=== PATIENT | male | born 1955 | race Caucasian/White ===

== ENCOUNTER 2018-09-20 10:07 | Inpatient (IN) ==
[2018-09-20] MEDS ORDERED: HEPARIN DRIP 25,000 UNITS/500 ML PREMIX IV ONE (15:48)
[2018-09-20] MEDS: HEPARIN DRIP 25,000 UNITS/500 ML PREMIX IV SCH (19:12)
[2018-09-20] MEDS ORDERED: NITROGLYCERIN SL 0.4 MG TABLET SL PRN (21:59)
[2018-09-20] MEDS ORDERED: MORPHINE 4 MG/1 ML VIAL IV PRN (21:59)
[2018-09-21] MEDS: NITROGLYCERIN 2% OINT 1 INCH/GM PACK TOP SCH ×4 (00:15→19:28)
[2018-09-21 00:59] LABS: Basophils # 0.1 10*3/uL (0.0-0.2); Basophils % 0.5 % (0.0-0.8); Eosinophils # 0.2 10*3/uL (0.0-0.87); Eosinophils % 2.2 % (0.00-10.9); Hematocrit 44.1 VOL% (42.0-52.0); Hemoglobin 14.3 GM/DL (14.0-18.0); Immature Granulocytes % 0.4 %; Immature Granulocytes Absolute 0.04 #; Lymphocytes # 3.2 10*3/uL (1.4-4.0); Lymphocytes % 34.5 % (21.2-54.2); Mean Corpuscular HGB Conc 32.4 GM/DL (32-36); Mean Corpuscular Volume 90.4 FL (87-102); Mean Platelet Volume 8.6 FL (9.6-12.0); Neutrophils % 51.4 % (38.7-73.9); Platelet Count 239 T/CUMM (130-400); Red Blood Count 4.88 MC/CUMM (3.8-5.5); Red Cell Distribution Width 13.4 % (9.3-17.3); White Blood Count 9.4 T/CUMM (4-12)
[2018-09-21 01:30] LABS: Blood Urea Nitrogen 13 MG/DL (7-18); Calcium 8.5 MG/DL (8.5-10.1); Glucose 110 MG/DL (74-106); Osmolality,Calculated 283.1 MOS/KG (273-304)
[2018-09-21] MEDS ORDERED: HEPARIN 5,000 UNIT/1 ML VIAL IV PRN (02:08)
[2018-09-21] MEDS ORDERED: predniSONE 5 MG TABLET PO SCH (09:00)
[2018-09-21] MEDS: predniSONE 5 MG TABLET PO SCH (09:16)
[2018-09-21] MEDS: amLODIPine 10 MG TABLET PO SCH (09:16)
[2018-09-21] MEDS: BENAZEPRIL 10 MG TABLET PO SCH (09:16)
[2018-09-21] MEDS: HEPARIN DRIP 25,000 UNITS/500 ML PREMIX IV SCH ×2 (09:16→19:28)
[2018-09-21 12:35] LABS: Troponin I 0.949 NG/ML (0.00-0.045)
[2018-09-21] MEDS ORDERED: SIMVASTATIN 10 MG TABLET PO SCH (17:00)
[2018-09-21] MEDS: SIMVASTATIN 10 MG TABLET PO SCH (21:44)
[2018-09-22] MEDS: HEPARIN DRIP 25,000 UNITS/500 ML PREMIX IV SCH ×2 (00:41→16:19)
[2018-09-22] MEDS: NITROGLYCERIN 2% OINT 1 INCH/GM PACK TOP SCH ×4 (01:30→19:08)
[2018-09-22] MEDS ORDERED: ACETAMINOPHEN 325 MG TABLET PO PRN (01:50)
[2018-09-22] MEDS: BENAZEPRIL 10 MG TABLET PO SCH (12:33)
[2018-09-22] MEDS: amLODIPine 10 MG TABLET PO SCH (12:34)
[2018-09-22] MEDS: CHLORHEXIDINE 4% SOLN 118 ML BOTTLE TOP SCH ×2 (20:02→22:48)
[2018-09-22] MEDS: SIMVASTATIN 10 MG TABLET PO SCH (21:05)
[2018-09-22] MEDS: CHLORHEXIDINE 0.12% ORAL RINSE 60 ML BOTTLE SWISH/SPIT SCH (22:48)
[2018-09-23] MEDS: NITROGLYCERIN 2% OINT 1 INCH/GM PACK TOP SCH ×3 (00:40→14:44)
[2018-09-23] MEDS ORDERED: TISSUE ADHESIVE 1 EACH APPLICATOR TOP ONE (04:26)
[2018-09-23] MEDS ORDERED: VANCOMYCIN 1,000 MG VIAL ONE ×2 (04:26→14:51)
[2018-09-23] MEDS ORDERED: PAPAVERINE 60 MG/2 ML VIAL ONE (04:26)
[2018-09-23] MEDS: CHLORHEXIDINE 4% SOLN 118 ML BOTTLE TOP SCH ×2 (05:34→09:05)
[2018-09-23] MEDS ORDERED: FAMOTIDINE 20 MG TABLET PO ONE ×2 (06:00→10:00)
[2018-09-23] MEDS ORDERED: DIAZEPAM 5 MG TABLET PO ONE ×2 (06:00→10:00)
[2018-09-23] MEDS ORDERED: HEPARIN/NACL 0.9% 2 UNITS/ML 500 ML IV ONE (06:13)
[2018-09-23] MEDS ORDERED: AMINOCAPROIC ACID 5,000 MG/20 ML VIAL ONE ×2 (06:27→17:29)
[2018-09-23] MEDS ORDERED: CEFUROXIME INJ 1,500 MG in SYRINGE 1 EACH IV ONE (08:00)
[2018-09-23] MEDS: predniSONE 5 MG TABLET PO SCH (09:03)
[2018-09-23] MEDS: amLODIPine 10 MG TABLET PO SCH (09:03)
[2018-09-23] MEDS: BENAZEPRIL 10 MG TABLET PO SCH (09:04)
[2018-09-23] MEDS: CHLORHEXIDINE 0.12% ORAL RINSE 60 ML BOTTLE SWISH/SPIT SCH ×2 (09:08→20:05)
[2018-09-23] MEDS: SODIUM CHLORIDE 0.9% 1,000 ML IV SCH ×2 (09:11→10:39)
[2018-09-23] MEDS ORDERED: LIDOCAINE 2% TOP JELLY 20 ML VIAL INTRAURETH ONE ×2 (12:33→12:35)
[2018-09-23 13:09] LABS: ABG Base Excess 0.9 MMOL/L (-2.5-2.5); ABG HCO3 25.3 MMOL/L (20-26); ABG Oxygen Saturation 99.4 % (95-100); ABG PCO2 40.7 MM HG (35-48); ABG PH 7.408 (7.35-7.45); ABG TCO2 22.2 MMOL/L (23-27); Glucose Heart Surgery 127 MG/DL (74-106); Hematocrit Heart Surgery 42.1 PERCENT (42-52); Hemoglobin Heart Surgery 13.7 G/DL (14.0-18.0); Ionized Calcium Arterial 1.18 MMOL/L (1.21-1.46); PCO2 Patient Temp Arterial 40.7 MMHG; PH Patient Temp Arterial 7.408; Patient Temperature 37 CELCIUS; Potassium Heart/CVR 3.8 MMOL/L (3.5-5.1); Sodium Heart/CVR 141 MMOL/L (135-145)
[2018-09-23] MEDS ORDERED: EPINEPHrine 1 MG/10 ML SYRINGE ONE (14:07)
[2018-09-23] MEDS ORDERED: ATROPINE 1 MG/10 ML SYRINGE ONE (14:07)
[2018-09-23] MEDS ORDERED: SODIUM BICARBONATE 50 MEQ/50 ML VIAL IV ONE (14:07)
[2018-09-23] MEDS ORDERED: ALBUMIN 5% 12.5 GM/250 ML VIAL IV ONE (14:07)
[2018-09-23] MEDS ORDERED: PHENYLEPHRINE DRIP 0 MG/0 ML PREMIX IV ONE (14:07)
[2018-09-23] MEDS ORDERED: LIDOCAINE 100 MG/5 ML SYRINGE ONE (14:07)
[2018-09-23] MEDS ORDERED: POTASSIUM CHLORIDE RIDER 100 ML IV ONE (14:08)
[2018-09-23] MEDS ORDERED: MIDAZOLAM 10 MG/2 ML VIAL ONE ×2 (14:11→17:29)
[2018-09-23 14:42] LABS: Hematocrit Heart Surgery 27.9 PERCENT (42-52); PCO2 Patient Temp Venous 32.3 MM HG; PH Patient Temp Venous 7.477; PO2 Patient Temp Venous 34.1 MM HG; Potassium Heart/CVR 4.8 MMOL/L (3.5-5.1); VBG Base Excess 0.9 MEQ/L (0-4); VBG Oxygen Saturation 83.5 %; VBG PCO2 39.2 MMHG (41-51); VBG PH 7.418
[2018-09-23 15:08] LABS: Hematocrit Heart Surgery 30.2 PERCENT (42-52); Hemoglobin Heart Surgery 9.8 G/DL (14.0-18.0); PCO2 Patient Temp Venous 30.1 MM HG; PH Patient Temp Venous 7.486; Potassium Heart/CVR 4.9 MMOL/L (3.5-5.1); VBG HCO3 24.3 MEQ/L (24-28); VBG Oxygen Saturation 85.5 %; VBG PCO2 38.3 MMHG (41-51); VBG PH 7.413
[2018-09-23 15:40] LABS: Hematocrit Heart Surgery 33.2 PERCENT (42-52); Hemoglobin Heart Surgery 10.8 G/DL (14.0-18.0); PCO2 Patient Temp Venous 36.1 MM HG; PH Patient Temp Venous 7.432; PO2 Patient Temp Venous 41.3 MM HG; Potassium Heart/CVR 5.8 MMOL/L (3.5-5.1); VBG Base Excess 0.1 MEQ/L (0-4); VBG HCO3 24.3 MEQ/L (24-28); VBG Oxygen Saturation 82.2 %; VBG PCO2 37.9 MMHG (41-51); VBG PH 7.418; VBG PO2 44.2 MMHG (17-40)
[2018-09-23 16:14] LABS: ABG Base Excess -1.7 MMOL/L (-2.5-2.5); ABG Oxygen Saturation 97.9 % (95-100); ABG PCO2 37.3 MM HG (35-48); ABG PH 7.394 (7.35-7.45); ABG TCO2 20.3 MMOL/L (23-27); Glucose Heart Surgery 360 MG/DL (74-106); Hematocrit Heart Surgery 35.9 PERCENT (42-52); Hemoglobin Heart Surgery 11.6 G/DL (14.0-18.0); Ionized Calcium Arterial 1.25 MMOL/L (1.21-1.46); PCO2 Patient Temp Arterial 37.3 MMHG; PH Patient Temp Arterial 7.394; Patient Temperature 37 CELCIUS; Potassium Heart/CVR 4.3 MMOL/L (3.5-5.1); Sodium Heart/CVR 132 MMOL/L (135-145)
[2018-09-23] MEDS ORDERED: MANNITOL 100 GM/500 ML BAG IV ONE (16:15)
[2018-09-23] MEDS ORDERED: SODIUM BICARBONATE 10 MEQ/10 ML SYRINGE IV ONE (16:15)
[2018-09-23] MEDS ORDERED: DEXTROSE 5% KCL 20 MEQ 40 MEQ/2,000 ML BAG IV ONE (16:16)
[2018-09-23] MEDS ORDERED: FUROSEMIDE 20 MG/2 ML VIAL ONE (16:16)
[2018-09-23] MEDS ORDERED: HEPARIN 10,000 UNIT/10 ML VIAL ONE (16:16)
[2018-09-23] MEDS ORDERED: ALBUMIN 25% 25 GM/100 ML VIAL IV ONE (16:16)
[2018-09-23] MEDS ORDERED: methylPREDNISolone SOD SUC 1,000 MG/8 ML VIAL ONE (16:16)
[2018-09-23] MEDS ORDERED: PROTAMINE SULFATE 250 MG/25 ML VIAL IV ONE (16:16)
[2018-09-23] MEDS ORDERED: PROTAMINE SULFATE 50 MG/5 ML VIAL IV ONE (16:17)
[2018-09-23] MEDS ORDERED: THROMBIN TOPICAL (RECOMBINANT) 5,000 UNIT VIAL TOP ONE (16:21)
[2018-09-23] MEDS: SODIUM CHLORIDE 0.45% 1,000 ML IV SCH (17:15)
[2018-09-23] MEDS ORDERED: MIDAZOLAM 2 MG/2 ML VIAL ONE (17:28)
[2018-09-23] MEDS ORDERED: SEVOFLURANE 1 UNIT/15 MINUTE INH ONE (17:28)
[2018-09-23] MEDS ORDERED: ETOMIDATE 40 MG/20 ML VIAL IV ONE (17:29)
[2018-09-23] MEDS ORDERED: VECURONIUM 10 MG VIAL IV ONE (17:29)
[2018-09-23] MEDS ORDERED: SODIUM CHLORIDE 0.9% 1,000 ML IV ONE (17:30)
[2018-09-23] MEDS ORDERED: LACTATED RINGERS 1,000 ML IV ONE (17:30)
[2018-09-23] MEDS ORDERED: CALCIUM CHLORIDE 1,000 MG/10 ML SYRINGE IV PRN (17:33)
[2018-09-23] MEDS ORDERED: DEXTROSE 50% 25 GM/50 ML SYRINGE IV PRN ×2 (17:33)
[2018-09-23] MEDS ORDERED: SODIUM CHLORIDE 0.45% 1,000 ML IV SCH (17:33)
[2018-09-23] MEDS ORDERED: ACETAMINOPHEN 650 MG SUPP RECTAL PRN (17:33)
[2018-09-23] MEDS ORDERED: MIDAZOLAM 2 MG/2 ML VIAL IV PRN (17:33)
[2018-09-23] MEDS ORDERED: MAGNESIUM SULF RIDER 2 GM in PREMIX 1 EACH IV PRN (17:33)
[2018-09-23] MEDS ORDERED: MAGNESIUM SULF RIDER 4 GM in PREMIX 1 EACH IV PRN (17:33)
[2018-09-23] MEDS ORDERED: ONDANSETRON 4 MG/2 ML VIAL IV PRN (17:33)
[2018-09-23] MEDS ORDERED: MORPHINE 4 MG/1 ML VIAL IV PRN (17:33)
[2018-09-23] MEDS ORDERED: SODIUM CHLORIDE 0.9% 250 ML IV PRN (17:33)
[2018-09-23] MEDS ORDERED: CHLORHEXIDINE 4% SOLN 118 ML BOTTLE TOP PRN (17:33)
[2018-09-23] MEDS ORDERED: INSULIN REGULAR 100 UNIT/ML IV PRN (17:33)
[2018-09-23 17:54] LABS: ABG Base Excess -0.4 MMOL/L (-2.5-2.5); ABG HCO3 24.1 MMOL/L (20-26); ABG Oxygen Saturation 97.4 % (95-100); ABG PCO2 35.4 MM HG (35-48); ABG PH 7.428 (7.35-7.45); ABG PO2 91.4 MM HG (80-95); ABG TCO2 20.5 MMOL/L (23-27); Basophils % 0.2 % (0.0-0.8); Eosinophils # 0.1 10*3/uL (0.0-0.87); Eosinophils % 0.5 % (0.00-10.9); Glucose Heart Surgery 297 MG/DL (74-106); Hematocrit Heart Surgery 39.2 PERCENT (42-52); Hemoglobin 12.7 GM/DL (14.0-18.0); Hemoglobin Heart Surgery 12.7 G/DL (14.0-18.0); Immature Granulocytes Absolute 0.14 #; Lymphocytes # 2.4 10*3/uL (1.4-4.0); Lymphocytes % 17.1 % (21.2-54.2); Mean Corpuscular HGB Conc 33.4 GM/DL (32-36); Mean Corpuscular Volume 89.6 FL (87-102); Mean Platelet Volume 8.9 FL (9.6-12.0); Neutrophils % 72.2 % (38.7-73.9); Platelet Count 196 T/CUMM (130-400); Potassium Heart/CVR 3.2 MMOL/L (3.5-5.1); Red Blood Count 4.24 MC/CUMM (3.8-5.5); Red Cell Distribution Width 13.4 % (9.3-17.3); White Blood Count 14.1 T/CUMM (4-12)
[2018-09-23] MEDS ORDERED: SODIUM CHLORIDE 0.9% 1,000 ML IV PRN (17:56)
[2018-09-23] MEDS: POTASSIUM CHLORIDE RIDER 20 MEQ in PREMIX 1 EACH IV PRN ×2 (17:58→18:29)
[2018-09-23 18:04] LABS: INR 1.1; Partial Thromboplastin Time 26.1 SECS (0-40)
[2018-09-23] MEDS: ALBUMIN 5% 12.5 GM in PREMIX 1 EACH IV PRN ×2 (18:14→18:30)
[2018-09-23 18:16] LABS: Calcium 9.2 MG/DL (8.5-10.1); Osmolality,Calculated 283.7 MOS/KG (273-304)
[2018-09-23] MEDS ORDERED: ASPIRIN CHEW 81 MG TABLET PO ONE (18:17)
[2018-09-23] MEDS: HEPARIN DRIP 25,000 UNITS/500 ML PREMIX IV SCH (18:21)
[2018-09-23] MEDS: INSULIN REGULAR DRIP 100 ML IV SCH (18:42)
[2018-09-23] MEDS: MORPHINE 10 MG/1 ML VIAL IV PRN (22:13)
[2018-09-23] MEDS: CEFUROXIME INJ 1,500 MG in SYRINGE 1 EACH IV SCH (23:37)
[2018-09-23 23:46] LABS: ABG Base Excess -2.1 MMOL/L (-2.5-2.5); ABG HCO3 22.6 MMOL/L (20-26); ABG Oxygen Saturation 94.1 % (95-100); ABG PCO2 36.2 MM HG (35-48); ABG PH 7.397 (7.35-7.45); ABG PO2 69.3 MM HG (80-95); ABG TCO2 19.7 MMOL/L (23-27); Glucose Heart Surgery 169 MG/DL (74-106); Hematocrit Heart Surgery 37.5 PERCENT (42-52); Hemoglobin Heart Surgery 12.2 G/DL (14.0-18.0); Potassium Heart/CVR 3.4 MMOL/L (3.5-5.1)
[2018-09-24] MEDS: MORPHINE 10 MG/1 ML VIAL IV PRN ×4 (01:23→19:05)
[2018-09-24 03:52] LABS: ABG Base Excess -2.7 MMOL/L (-2.5-2.5); ABG Oxygen Saturation 93.4 % (95-100); ABG PCO2 36.5 MM HG (35-48); ABG PH 7.384 (7.35-7.45); ABG PO2 67.8 MM HG (80-95); ABG TCO2 19.4 MMOL/L (23-27); Basophils % 0.1 % (0.0-0.8); Glucose Heart Surgery 181 MG/DL (74-106); Hematocrit 34.7 VOL% (42.0-52.0); Hemoglobin 11.6 GM/DL (14.0-18.0); Immature Granulocytes % 0.6 %; Immature Granulocytes Absolute 0.08 #; Lymphocytes # 0.8 10*3/uL (1.4-4.0); Mean Corpuscular HGB Conc 33.4 GM/DL (32-36); Mean Corpuscular Volume 89.9 FL (87-102); Monocytes % 9.2 % (1.7-12.7); Neutrophils % 84.1 % (38.7-73.9); Platelet Count 205 T/CUMM (130-400); Potassium Heart/CVR 3.8 MMOL/L (3.5-5.1); Red Blood Count 3.86 MC/CUMM (3.8-5.5); Red Cell Distribution Width 13.6 % (9.3-17.3); White Blood Count 13.9 T/CUMM (4-12)
[2018-09-24 04:19] LABS: Osmolality,Calculated 282.4 MOS/KG (273-304)
[2018-09-24] MEDS: SODIUM CHLORIDE 0.45% 1,000 ML IV SCH ×2 (05:31→07:08)
[2018-09-24] MEDS: POTASSIUM CHLORIDE RIDER 20 MEQ in PREMIX 1 EACH IV PRN (05:33)
[2018-09-24] MEDS: POTASSIUM CHLORIDE RIDER 10 MEQ in PREMIX 1 EACH IV PRN (06:08)
[2018-09-24] MEDS ORDERED: FUROSEMIDE 40 MG/4 ML VIAL IV ONE (07:02)
[2018-09-24] MEDS ORDERED: KETOROLAC 30 MG/1 ML VIAL IV ONE (07:02)
[2018-09-24 08:24] LABS: ABG Base Excess -2.5 MMOL/L (-2.5-2.5); ABG HCO3 22.2 MMOL/L (20-26); ABG Oxygen Saturation 92.3 % (95-100); ABG PCO2 34.3 MM HG (35-48); ABG PH 7.406 (7.35-7.45); ABG PO2 62.5 MM HG (80-95); ABG TCO2 19.1 MMOL/L (23-27); Glucose Heart Surgery 202 MG/DL (74-106); Hematocrit Heart Surgery 37.2 PERCENT (42-52); Hemoglobin Heart Surgery 12.1 G/DL (14.0-18.0)
[2018-09-24] MEDS: predniSONE 5 MG TABLET PO SCH (08:34)
[2018-09-24] MEDS: METOPROLOL TARTRATE 25 MG TABLET PO SCH ×2 (08:34→20:34)
[2018-09-24] MEDS: PANTOPRAZOLE 40 MG VIAL IV SCH (08:35)
[2018-09-24] MEDS: CHLORHEXIDINE 0.12% ORAL RINSE 60 ML BOTTLE SWISH/SPIT SCH ×2 (09:41→20:35)
[2018-09-24] MEDS: ALBUTEROL/IPRATROPIUM 3 ML NEB RESP TX SCH ×3 (10:25→20:11)
[2018-09-24] MEDS: INSULIN REGULAR 100 UNIT/ML SUBCUT SCH ×3 (12:11→20:34)
[2018-09-24] MEDS: CEFUROXIME INJ 1,500 MG in SYRINGE 1 EACH IV SCH (12:34)
[2018-09-24] MEDS: ATORVASTATIN 40 MG TABLET PO SCH ×2 (17:09→20:34)
[2018-09-24] MEDS: ASPIRIN EC 325 MG TABLET PO SCH (17:09)
[2018-09-24] MEDS: FUROSEMIDE 40 MG TABLET PO SCH (17:09)
[2018-09-24] MEDS: INSULIN REGULAR DRIP 100 ML IV SCH (17:57)
[2018-09-25] MEDS: ALBUTEROL/IPRATROPIUM 3 ML NEB RESP TX SCH ×6 (00:10→19:50)
[2018-09-25] MEDS: INSULIN REGULAR 100 UNIT/ML SUBCUT SCH ×6 (00:39→21:06)
[2018-09-25] MEDS: CEFUROXIME INJ 1,500 MG in SYRINGE 1 EACH IV SCH (00:40)
[2018-09-25 04:03] LABS: Basophils % 0.1 % (0.0-0.8); Hematocrit 36.2 VOL% (42.0-52.0); Hemoglobin 12.1 GM/DL (14.0-18.0); Immature Granulocytes % 0.7 %; Immature Granulocytes Absolute 0.15 #; Lymphocytes # 1.9 10*3/uL (1.4-4.0); Lymphocytes % 9.6 % (21.2-54.2); Mean Corpuscular HGB Conc 33.4 GM/DL (32-36); Mean Platelet Volume 9.3 FL (9.6-12.0); Monocytes % 9.6 % (1.7-12.7); Platelet Count 253 T/CUMM (130-400); Red Blood Count 4.02 MC/CUMM (3.8-5.5); White Blood Count 20.2 T/CUMM (4-12)
[2018-09-25] MEDS: MORPHINE 10 MG/1 ML VIAL IV PRN ×2 (04:05→15:44)
[2018-09-25 04:29] LABS: Osmolality,Calculated 293.1 MOS/KG (273-304)
[2018-09-25 04:37] LABS: Band Neutrophils 2 % (0-10); Hypochromasia 2+; Lymphocytes 12 % (20-55); Platelet Estimate Normal; Segmented Neutrophils 76 % (50-85); Total Cells Counted 100
[2018-09-25] MEDS ORDERED: LEVALBUTEROL 1.25 MG/3 ML NEB RESP TX ONE (04:41)
[2018-09-25 04:45] LABS: ABG Base Excess 2.4 MMOL/L (-2.5-2.5); ABG HCO3 25.7 MMOL/L (20-26); ABG Oxygen Saturation 89.5 % (95-100); ABG PCO2 35.6 MM HG (35-48); ABG PH 7.477 (7.35-7.45); ABG PO2 56.8 MM HG (80-95); ABG TCO2 26.8 MMOL/L (23-27)
[2018-09-25] MEDS: FUROSEMIDE 40 MG TABLET PO SCH (09:46)
[2018-09-25] MEDS: METOPROLOL TARTRATE 25 MG TABLET PO SCH ×2 (09:47→20:27)
[2018-09-25] MEDS: ASPIRIN EC 325 MG TABLET PO SCH (09:47)
[2018-09-25] MEDS: PANTOPRAZOLE 40 MG VIAL IV SCH (09:47)
[2018-09-25] MEDS: CHLORHEXIDINE 0.12% ORAL RINSE 60 ML BOTTLE SWISH/SPIT SCH ×2 (09:50→20:27)
[2018-09-25] MEDS: INSULIN REGULAR DRIP 100 ML IV SCH (18:10)
[2018-09-25] MEDS: ATORVASTATIN 40 MG TABLET PO SCH (20:27)
[2018-09-26] MEDS: ALBUTEROL/IPRATROPIUM 3 ML NEB RESP TX SCH ×7 (00:02→23:53)
[2018-09-26] MEDS: INSULIN REGULAR 100 UNIT/ML SUBCUT SCH ×6 (00:52→20:41)
[2018-09-26 04:46] LABS: ABG Base Excess 4.9 MMOL/L (-2.5-2.5); ABG HCO3 28.6 MMOL/L (20-26); ABG Oxygen Saturation 89.8 % (95-100); ABG PCO2 38.7 MM HG (35-48); ABG PH 7.477 (7.35-7.45); ABG PO2 56.9 MM HG (80-95); ABG TCO2 25.2 MMOL/L (23-27); Allen Test Positive; Pt O2 Delivery Device Other
[2018-09-26 05:47] LABS: Basophils % 0.1 % (0.0-0.8); Hematocrit 35.4 VOL% (42.0-52.0); Hemoglobin 11.6 GM/DL (14.0-18.0); Immature Granulocytes Absolute 0.18 #; Lymphocytes # 3.1 10*3/uL (1.4-4.0); Lymphocytes % 17.1 % (21.2-54.2); Mean Corpuscular HGB Conc 32.8 GM/DL (32-36); Mean Corpuscular Volume 91.5 FL (87-102); Mean Platelet Volume 9.5 FL (9.6-12.0); Monocytes % 11.4 % (1.7-12.7); Neutrophils % 70.4 % (38.7-73.9); Platelet Count 262 T/CUMM (130-400); Red Blood Count 3.87 MC/CUMM (3.8-5.5); Red Cell Distribution Width 14.1 % (9.3-17.3); White Blood Count 18.2 T/CUMM (4-12)
[2018-09-26 06:06] LABS: Calcium 8.6 MG/DL (8.5-10.1); Osmolality,Calculated 295.7 MOS/KG (273-304)
[2018-09-26] MEDS: POTASSIUM CHLORIDE RIDER 20 MEQ in PREMIX 1 EACH IV PRN (06:21)
[2018-09-26] MEDS: POTASSIUM CHLORIDE RIDER 10 MEQ in PREMIX 1 EACH IV PRN (07:03)
[2018-09-26] MEDS: METOPROLOL TARTRATE 25 MG TABLET PO SCH ×2 (10:45→20:42)
[2018-09-26] MEDS: ASPIRIN EC 325 MG TABLET PO SCH (10:45)
[2018-09-26] MEDS: FUROSEMIDE 40 MG TABLET PO SCH (10:45)
[2018-09-26] MEDS: predniSONE 5 MG TABLET PO SCH (10:47)
[2018-09-26] MEDS: methylPREDNISolone SOD SUC 40 MG/1 ML VIAL IV SCH ×2 (10:49→17:35)
[2018-09-26] MEDS: PANTOPRAZOLE 40 MG VIAL IV SCH (10:51)
[2018-09-26] MEDS: CHLORHEXIDINE 0.12% ORAL RINSE 60 ML BOTTLE SWISH/SPIT SCH ×2 (10:54→20:43)
[2018-09-26] MEDS: ATORVASTATIN 40 MG TABLET PO SCH (20:43)
[2018-09-27] MEDS: INSULIN REGULAR 100 UNIT/ML SUBCUT SCH ×6 (01:34→22:17)
[2018-09-27] MEDS: methylPREDNISolone SOD SUC 40 MG/1 ML VIAL IV SCH ×3 (01:35→16:44)
[2018-09-27] MEDS: ALBUTEROL/IPRATROPIUM 3 ML NEB RESP TX SCH ×5 (03:47→20:33)
[2018-09-27 04:42] LABS: Basophils % 0.1 % (0.0-0.8); Hemoglobin 12.3 GM/DL (14.0-18.0); Immature Granulocytes % 1.6 %; Immature Granulocytes Absolute 0.27 #; Lymphocytes % 11.9 % (21.2-54.2); Mean Corpuscular HGB Conc 32.4 GM/DL (32-36); Mean Corpuscular Volume 90.9 FL (87-102); Monocytes % 4.9 % (1.7-12.7); Neutrophils % 81.5 % (38.7-73.9); Platelet Count 257 T/CUMM (130-400); Red Blood Count 4.18 MC/CUMM (3.8-5.5); White Blood Count 16.9 T/CUMM (4-12)
[2018-09-27 04:59] LABS: Calcium 9.2 MG/DL (8.5-10.1); Osmolality,Calculated 297.8 MOS/KG (273-304)
[2018-09-27] MEDS: METOPROLOL TARTRATE 25 MG TABLET PO SCH ×2 (08:33→21:58)
[2018-09-27] MEDS: ASPIRIN EC 325 MG TABLET PO SCH (08:33)
[2018-09-27] MEDS: FUROSEMIDE 40 MG TABLET PO SCH (08:34)
[2018-09-27] MEDS: CHLORHEXIDINE 0.12% ORAL RINSE 60 ML BOTTLE SWISH/SPIT SCH ×2 (08:36→21:58)
[2018-09-27] MEDS: PANTOPRAZOLE 40 MG VIAL IV SCH (08:41)
[2018-09-27] MEDS ORDERED: MAGNESIUM HYDROXIDE SUSP 30 ML UDCUP PO PRN (14:11)
[2018-09-27] MEDS: ATORVASTATIN 40 MG TABLET PO SCH (21:58)
[2018-09-28] MEDS: ALBUTEROL/IPRATROPIUM 3 ML NEB RESP TX SCH ×7 (00:01→23:50)
[2018-09-28] MEDS: INSULIN REGULAR 100 UNIT/ML SUBCUT SCH ×6 (01:56→20:31)
[2018-09-28] MEDS: methylPREDNISolone SOD SUC 40 MG/1 ML VIAL IV SCH ×3 (01:57→17:22)
[2018-09-28 04:47] LABS: Osmolality,Calculated 305.8 MOS/KG (273-304)
[2018-09-28 07:54] LABS: Basophils # 0.1 10*3/uL (0.0-0.2); Basophils % 0.2 % (0.0-0.8); Hematocrit 37.1 VOL% (42.0-52.0); Hemoglobin 11.9 GM/DL (14.0-18.0); Immature Granulocytes % 2.7 %; Immature Granulocytes Absolute 0.55 #; Lymphocytes % 9.8 % (21.2-54.2); Mean Corpuscular HGB Conc 32.1 GM/DL (32-36); Mean Corpuscular Volume 91.4 FL (87-102); Mean Platelet Volume 9.5 FL (9.6-12.0); Monocytes % 7.9 % (1.7-12.7); Neutrophils % 79.4 % (38.7-73.9); Platelet Count 398 T/CUMM (130-400); Red Blood Count 4.06 MC/CUMM (3.8-5.5); White Blood Count 20.5 T/CUMM (4-12)
[2018-09-28] MEDS: ASPIRIN EC 325 MG TABLET PO SCH (08:51)
[2018-09-28] MEDS: CHLORHEXIDINE 0.12% ORAL RINSE 60 ML BOTTLE SWISH/SPIT SCH ×2 (08:52→20:31)
[2018-09-28] MEDS: FUROSEMIDE 40 MG TABLET PO SCH (08:52)
[2018-09-28] MEDS: METOPROLOL TARTRATE 25 MG TABLET PO SCH ×2 (08:52→20:31)
[2018-09-28] MEDS: PANTOPRAZOLE 40 MG VIAL IV SCH (08:55)
[2018-09-28 12:48] LABS: Hypochromasia Slight; Lymphocytes 5 % (20-55); Microcytosis Slight; Ovalocytes Few; Platelet Estimate Normal; Polychromasia Slight; Segmented Neutrophils 86 % (50-85); Total Cells Counted 100
[2018-09-28] MEDS: ATORVASTATIN 40 MG TABLET PO SCH (20:31)
[2018-09-29] MEDS: INSULIN REGULAR 100 UNIT/ML SUBCUT SCH ×7 (00:46→21:00)
[2018-09-29] MEDS: methylPREDNISolone SOD SUC 40 MG/1 ML VIAL IV SCH ×3 (01:46→17:52)
[2018-09-29] MEDS: MORPHINE 10 MG/1 ML VIAL IV PRN (01:57)
[2018-09-29] MEDS: ALBUTEROL/IPRATROPIUM 3 ML NEB RESP TX SCH ×6 (03:40→22:45)
[2018-09-29 06:35] LABS: Basophils # 0.1 10*3/uL (0.0-0.2); Basophils % 0.3 % (0.0-0.8); Hematocrit 37.1 VOL% (42.0-52.0); Hemoglobin 11.6 GM/DL (14.0-18.0); Immature Granulocytes Absolute 0.94 #; Lymphocytes # 1.9 10*3/uL (1.4-4.0); Mean Corpuscular HGB Conc 31.3 GM/DL (32-36); Mean Corpuscular Volume 92.8 FL (87-102); Mean Platelet Volume 9.8 FL (9.6-12.0); Monocytes % 6.7 % (1.7-12.7); Platelet Count 358 T/CUMM (130-400); Red Cell Distribution Width 14.1 % (9.3-17.3); White Blood Count 23.6 T/CUMM (4-12)
[2018-09-29 06:46] LABS: Calcium 8.7 MG/DL (8.5-10.1); Osmolality,Calculated 304.8 MOS/KG (273-304)
[2018-09-29] MEDS: FUROSEMIDE 40 MG TABLET PO SCH (08:30)
[2018-09-29] MEDS: METOPROLOL TARTRATE 25 MG TABLET PO SCH ×2 (08:30→21:00)
[2018-09-29] MEDS: PANTOPRAZOLE 40 MG VIAL IV SCH (08:30)
[2018-09-29] MEDS: ASPIRIN EC 325 MG TABLET PO SCH (08:30)
[2018-09-29] MEDS: CHLORHEXIDINE 0.12% ORAL RINSE 60 ML BOTTLE SWISH/SPIT SCH ×2 (08:44→21:00)
[2018-09-29 09:24] LABS: Hypochromasia Slight; Lymphocytes 3 % (20-55); Segmented Neutrophils 86 % (50-85); Total Cells Counted 100
[2018-09-29 09:25] LABS: Platelet Estimate Normal; Polychromasia Slight
[2018-09-29] MEDS: ATORVASTATIN 40 MG TABLET PO SCH (21:00)
[2018-09-30] MEDS: INSULIN REGULAR 100 UNIT/ML SUBCUT SCH ×6 (00:59→20:43)
[2018-09-30] MEDS: methylPREDNISolone SOD SUC 40 MG/1 ML VIAL IV SCH ×3 (02:16→17:02)
[2018-09-30 03:37] LABS: Basophils # 0.1 10*3/uL (0.0-0.2); Basophils % 0.4 % (0.0-0.8); Hematocrit 36.5 VOL% (42.0-52.0); Hemoglobin 11.7 GM/DL (14.0-18.0); Immature Granulocytes % 5.7 %; Immature Granulocytes Absolute 1.54 #; Lymphocytes # 2.5 10*3/uL (1.4-4.0); Lymphocytes % 9.3 % (21.2-54.2); Mean Corpuscular HGB Conc 32.1 GM/DL (32-36); Mean Corpuscular Volume 93.1 FL (87-102); Mean Platelet Volume 9.6 FL (9.6-12.0); Monocytes % 8.5 % (1.7-12.7); NRBC # 0.02 10*3/uL; Neutrophils % 76.1 % (38.7-73.9); Platelet Count 429 T/CUMM (130-400); Red Blood Count 3.92 MC/CUMM (3.8-5.5); Red Cell Distribution Width 14.3 % (9.3-17.3)
[2018-09-30 03:42] LABS: Calcium 8.4 MG/DL (8.5-10.1); Osmolality,Calculated 298.3 MOS/KG (273-304)
[2018-09-30] MEDS: ALBUTEROL/IPRATROPIUM 3 ML NEB RESP TX SCH ×5 (04:11→19:19)
[2018-09-30 04:23] LABS: Lymphocytes 8 % (20-55); Myelocytes 3 %; Segmented Neutrophils 81 % (50-85); Total Cells Counted 100
[2018-09-30 04:24] LABS: Anisocytosis Slight; Microcytosis 1+
[2018-09-30 04:25] LABS: Platelet Estimate Increased; Polychromasia Slight
[2018-09-30] MEDS: CHLORHEXIDINE 0.12% ORAL RINSE 60 ML BOTTLE SWISH/SPIT SCH ×2 (08:51→20:24)
[2018-09-30] MEDS: FUROSEMIDE 40 MG TABLET PO SCH (08:51)
[2018-09-30] MEDS: METOPROLOL TARTRATE 25 MG TABLET PO SCH ×2 (08:51→20:24)
[2018-09-30] MEDS: ASPIRIN EC 325 MG TABLET PO SCH (08:51)
[2018-09-30] MEDS: PANTOPRAZOLE 40 MG VIAL IV SCH (08:51)
[2018-09-30] MEDS: FUROSEMIDE 40 MG/4 ML VIAL IV SCH (18:33)
[2018-09-30] MEDS: ATORVASTATIN 40 MG TABLET PO SCH (20:24)
[2018-10-01] MEDS: INSULIN REGULAR 100 UNIT/ML SUBCUT SCH ×6 (00:10→21:42)
[2018-10-01] MEDS: ACETYLCYSTEINE 20% 800 MG/4 ML VIAL RESP TX SCH ×4 (00:42→22:45)
[2018-10-01] MEDS: ALBUTEROL/IPRATROPIUM 3 ML NEB RESP TX SCH ×7 (00:42→22:45)
[2018-10-01] MEDS: methylPREDNISolone SOD SUC 40 MG/1 ML VIAL IV SCH ×3 (02:20→17:11)
[2018-10-01 05:40] LABS: Calcium 8.5 MG/DL (8.5-10.1); Osmolality,Calculated 298.3 MOS/KG (273-304)
[2018-10-01 05:41] LABS: Basophils # 0.1 10*3/uL (0.0-0.2); Basophils % 0.3 % (0.0-0.8); Hematocrit 36.8 VOL% (42.0-52.0); Hemoglobin 11.9 GM/DL (14.0-18.0); Immature Granulocytes Absolute 1.87 #; Lymphocytes # 2.2 10*3/uL (1.4-4.0); Lymphocytes % 9.3 % (21.2-54.2); Mean Corpuscular HGB Conc 32.3 GM/DL (32-36); Mean Corpuscular Volume 91.3 FL (87-102); Mean Platelet Volume 10.4 FL (9.6-12.0); Monocytes % 7.8 % (1.7-12.7); NRBC # 0.02 10*3/uL; Neutrophils % 74.6 % (38.7-73.9); Platelet Count 327 T/CUMM (130-400); Red Blood Count 4.03 MC/CUMM (3.8-5.5); Red Cell Distribution Width 14.1 % (9.3-17.3); White Blood Count 23.5 T/CUMM (4-12)
[2018-10-01 06:05] LABS: Anisocytosis Slight; Eosinophils 1 % (0-10); Lymphocytes 16 % (20-55); Platelet Estimate Adequate; Segmented Neutrophils 79 % (50-85); Total Cells Counted 100
[2018-10-01] MEDS ORDERED: FUROSEMIDE 40 MG/4 ML VIAL IV ONE (07:11)
[2018-10-01] MEDS: ASPIRIN EC 325 MG TABLET PO SCH (09:09)
[2018-10-01] MEDS: METOPROLOL TARTRATE 25 MG TABLET PO SCH ×2 (09:09→21:43)
[2018-10-01] MEDS: FUROSEMIDE 40 MG/4 ML VIAL IV SCH ×2 (09:09→15:42)
[2018-10-01] MEDS: PANTOPRAZOLE 40 MG VIAL IV SCH (09:10)
[2018-10-01] MEDS: CHLORHEXIDINE 0.12% ORAL RINSE 60 ML BOTTLE SWISH/SPIT SCH ×2 (09:11→21:42)
[2018-10-01] MEDS: ATORVASTATIN 40 MG TABLET PO SCH (21:43)
[2018-10-02] MEDS: methylPREDNISolone SOD SUC 40 MG/1 ML VIAL IV SCH ×3 (01:09→16:55)
[2018-10-02] MEDS: INSULIN REGULAR 100 UNIT/ML SUBCUT SCH ×6 (01:09→21:16)
[2018-10-02] MEDS: ALBUTEROL/IPRATROPIUM 3 ML NEB RESP TX SCH ×6 (02:22→23:56)
[2018-10-02 05:18] LABS: Calcium 8.4 MG/DL (8.5-10.1); Osmolality,Calculated 300.5 MOS/KG (273-304)
[2018-10-02 06:04] LABS: Basophils # 0.1 10*3/uL (0.0-0.2); Basophils % 0.3 % (0.0-0.8); Hematocrit 39.6 VOL% (42.0-52.0); Hemoglobin 12.8 GM/DL (14.0-18.0); Immature Granulocytes % 5.9 %; Immature Granulocytes Absolute 1.47 #; Lymphocytes # 2.1 10*3/uL (1.4-4.0); Lymphocytes % 8.3 % (21.2-54.2); Mean Corpuscular HGB Conc 32.3 GM/DL (32-36); Mean Corpuscular Volume 91.9 FL (87-102); Mean Platelet Volume 9.7 FL (9.6-12.0); Monocytes % 6.1 % (1.7-12.7); NRBC # 0.02 10*3/uL; Neutrophils % 79.4 % (38.7-73.9); Platelet Count 357 T/CUMM (130-400); Red Blood Count 4.31 MC/CUMM (3.8-5.5); Red Cell Distribution Width 13.8 % (9.3-17.3); White Blood Count 24.8 T/CUMM (4-12)
[2018-10-02] MEDS: ACETYLCYSTEINE 20% 800 MG/4 ML VIAL RESP TX SCH ×3 (07:40→23:56)
[2018-10-02] MEDS: PANTOPRAZOLE 40 MG VIAL IV SCH (08:30)
[2018-10-02] MEDS: METOPROLOL TARTRATE 25 MG TABLET PO SCH ×2 (08:30→21:17)
[2018-10-02] MEDS: ASPIRIN EC 325 MG TABLET PO SCH (08:30)
[2018-10-02] MEDS: FUROSEMIDE 40 MG/4 ML VIAL IV SCH ×2 (08:32→16:52)
[2018-10-02] MEDS: CHLORHEXIDINE 0.12% ORAL RINSE 60 ML BOTTLE SWISH/SPIT SCH ×2 (08:35→21:17)
[2018-10-02] MEDS: ATORVASTATIN 40 MG TABLET PO SCH (21:17)
[2018-10-03] MEDS: INSULIN REGULAR 100 UNIT/ML SUBCUT SCH ×6 (01:01→21:32)
[2018-10-03] MEDS: methylPREDNISolone SOD SUC 40 MG/1 ML VIAL IV SCH ×3 (01:02→16:29)
[2018-10-03] MEDS: ALBUTEROL/IPRATROPIUM 3 ML NEB RESP TX SCH ×6 (02:50→23:26)
[2018-10-03] MEDS: ACETYLCYSTEINE 20% 800 MG/4 ML VIAL RESP TX SCH ×3 (07:15→23:26)
[2018-10-03] MEDS: ASPIRIN EC 325 MG TABLET PO SCH (08:18)
[2018-10-03] MEDS: FUROSEMIDE 40 MG/4 ML VIAL IV SCH ×2 (08:19→16:21)
[2018-10-03] MEDS: CHLORHEXIDINE 0.12% ORAL RINSE 60 ML BOTTLE SWISH/SPIT SCH ×2 (08:22→21:33)
[2018-10-03] MEDS: PANTOPRAZOLE 40 MG VIAL IV SCH (08:22)
[2018-10-03] MEDS: METOPROLOL TARTRATE 25 MG TABLET PO SCH ×2 (08:25→21:33)
[2018-10-03] MEDS: ATORVASTATIN 40 MG TABLET PO SCH (21:32)
[2018-10-04] MEDS: INSULIN REGULAR 100 UNIT/ML SUBCUT SCH ×5 (00:34→21:45)
[2018-10-04] MEDS: methylPREDNISolone SOD SUC 40 MG/1 ML VIAL IV SCH ×3 (01:46→16:58)
[2018-10-04] MEDS: ALBUTEROL/IPRATROPIUM 3 ML NEB RESP TX SCH ×5 (02:05→19:10)
[2018-10-04] MEDS: ACETYLCYSTEINE 20% 800 MG/4 ML VIAL RESP TX SCH ×2 (06:55→14:15)
[2018-10-04] MEDS: ASPIRIN EC 325 MG TABLET PO SCH (09:02)
[2018-10-04] MEDS: PANTOPRAZOLE 40 MG TABLET PO SCH (09:02)
[2018-10-04] MEDS: CHLORHEXIDINE 0.12% ORAL RINSE 60 ML BOTTLE SWISH/SPIT SCH ×2 (09:02→21:08)
[2018-10-04] MEDS: FUROSEMIDE 40 MG/4 ML VIAL IV SCH ×2 (09:02→15:16)
[2018-10-04] MEDS: METOPROLOL TARTRATE 25 MG TABLET PO SCH ×2 (09:02→21:09)
[2018-10-04] MEDS: ATORVASTATIN 40 MG TABLET PO SCH (21:09)
[2018-10-05] MEDS: ALBUTEROL/IPRATROPIUM 3 ML NEB RESP TX SCH ×7 (00:12→23:14)
[2018-10-05] MEDS: ACETYLCYSTEINE 20% 800 MG/4 ML VIAL RESP TX SCH ×4 (00:12→23:16)
[2018-10-05] MEDS: methylPREDNISolone SOD SUC 40 MG/1 ML VIAL IV SCH ×3 (01:40→16:48)
[2018-10-05] MEDS: ASPIRIN EC 325 MG TABLET PO SCH (09:32)
[2018-10-05] MEDS: PANTOPRAZOLE 40 MG TABLET PO SCH (09:32)
[2018-10-05] MEDS: METOPROLOL TARTRATE 25 MG TABLET PO SCH (09:32)
[2018-10-05] MEDS: FUROSEMIDE 40 MG/4 ML VIAL IV SCH ×2 (09:32→16:48)
[2018-10-05] MEDS: INSULIN REGULAR 100 UNIT/ML SUBCUT SCH ×4 (09:33→21:49)
[2018-10-05] MEDS: CHLORHEXIDINE 0.12% ORAL RINSE 60 ML BOTTLE SWISH/SPIT SCH ×2 (09:37→21:49)
[2018-10-05] MEDS: ATORVASTATIN 40 MG TABLET PO SCH (21:48)
[2018-10-06] MEDS: methylPREDNISolone SOD SUC 40 MG/1 ML VIAL IV SCH ×3 (01:45→16:29)
[2018-10-06] MEDS: METOPROLOL TARTRATE 25 MG TABLET PO SCH ×3 (02:12→21:53)
[2018-10-06] MEDS: ALBUTEROL/IPRATROPIUM 3 ML NEB RESP TX SCH ×6 (02:31→23:23)
[2018-10-06 05:51] LABS: Basophils # 0.1 10*3/uL (0.0-0.2); Basophils % 0.3 % (0.0-0.8); Hematocrit 40.4 VOL% (42.0-52.0); Hemoglobin 12.9 GM/DL (14.0-18.0); Immature Granulocytes % 2.5 %; Immature Granulocytes Absolute 0.72 #; Lymphocytes # 0.9 10*3/uL (1.4-4.0); Lymphocytes % 3.3 % (21.2-54.2); Mean Corpuscular HGB Conc 31.9 GM/DL (32-36); Mean Platelet Volume 10.7 FL (9.6-12.0); Monocytes % 6.9 % (1.7-12.7); Platelet Count 294 T/CUMM (130-400); Red Blood Count 4.39 MC/CUMM (3.8-5.5); White Blood Count 28.5 T/CUMM (4-12)
[2018-10-06 06:31] LABS: Band Neutrophils 4 % (0-10); Lymphocytes 5 % (20-55); Platelet Estimate Normal; Segmented Neutrophils 84 % (50-85); Total Cells Counted 100
[2018-10-06] MEDS: ACETYLCYSTEINE 20% 800 MG/4 ML VIAL RESP TX SCH ×3 (07:01→23:23)
[2018-10-06] MEDS: INSULIN REGULAR 100 UNIT/ML SUBCUT SCH ×4 (08:58→21:53)
[2018-10-06] MEDS: PANTOPRAZOLE 40 MG TABLET PO SCH (08:58)
[2018-10-06] MEDS: ASPIRIN EC 325 MG TABLET PO SCH (08:58)
[2018-10-06] MEDS: FUROSEMIDE 40 MG/4 ML VIAL IV SCH ×2 (08:59→16:28)
[2018-10-06] MEDS: CHLORHEXIDINE 0.12% ORAL RINSE 60 ML BOTTLE SWISH/SPIT SCH ×2 (08:59→21:53)
[2018-10-06] MEDS: ATORVASTATIN 40 MG TABLET PO SCH (21:53)
[2018-10-07] MEDS: methylPREDNISolone SOD SUC 40 MG/1 ML VIAL IV SCH ×3 (02:15→16:38)
[2018-10-07] MEDS: ALBUTEROL/IPRATROPIUM 3 ML NEB RESP TX SCH ×6 (03:35→23:44)
[2018-10-07 05:25] LABS: Basophils # 0.1 10*3/uL (0.0-0.2); Basophils % 0.2 % (0.0-0.8); Hematocrit 40.3 VOL% (42.0-52.0); Hemoglobin 13.4 GM/DL (14.0-18.0); Immature Granulocytes % 2.2 %; Immature Granulocytes Absolute 0.59 #; Lymphocytes # 1.1 10*3/uL (1.4-4.0); Lymphocytes % 4.3 % (21.2-54.2); Mean Corpuscular HGB Conc 33.3 GM/DL (32-36); Mean Corpuscular Volume 90.6 FL (87-102); Mean Platelet Volume 10.3 FL (9.6-12.0); Monocytes % 7.9 % (1.7-12.7); Neutrophils % 85.4 % (38.7-73.9); Platelet Count 309 T/CUMM (130-400); Red Blood Count 4.45 MC/CUMM (3.8-5.5); White Blood Count 26.5 T/CUMM (4-12)
[2018-10-07 05:47] LABS: Calcium 8.5 MG/DL (8.5-10.1)
[2018-10-07 05:55] LABS: Lymphocytes 3 % (20-55); Platelet Estimate Adequate; Segmented Neutrophils 89 % (50-85); Total Cells Counted 100
[2018-10-07] MEDS: ACETYLCYSTEINE 20% 800 MG/4 ML VIAL RESP TX SCH ×3 (07:00→23:44)
[2018-10-07] MEDS: INSULIN REGULAR 100 UNIT/ML SUBCUT SCH ×4 (08:29→20:58)
[2018-10-07] MEDS: CHLORHEXIDINE 0.12% ORAL RINSE 60 ML BOTTLE SWISH/SPIT SCH ×2 (08:30→20:59)
[2018-10-07] MEDS: ASPIRIN EC 325 MG TABLET PO SCH (08:30)
[2018-10-07] MEDS: METOPROLOL TARTRATE 25 MG TABLET PO SCH ×2 (08:30→20:59)
[2018-10-07] MEDS: PANTOPRAZOLE 40 MG TABLET PO SCH (08:30)
[2018-10-07] MEDS: FUROSEMIDE 40 MG/4 ML VIAL IV SCH ×2 (08:31→16:35)
[2018-10-07] MEDS: ATORVASTATIN 40 MG TABLET PO SCH (20:59)
[2018-10-07] MEDS ORDERED: METOPROLOL TARTRATE 5 MG/5 ML VIAL IV ONE ×2 (21:49→21:53)
[2018-10-08] MEDS: methylPREDNISolone SOD SUC 40 MG/1 ML VIAL IV SCH ×3 (01:56→16:57)
[2018-10-08] MEDS: ALBUTEROL/IPRATROPIUM 3 ML NEB RESP TX SCH ×6 (03:24→23:28)
[2018-10-08 05:51] LABS: Basophils # 0.1 10*3/uL (0.0-0.2); Basophils % 0.2 % (0.0-0.8); Hematocrit 39.4 VOL% (42.0-52.0); Hemoglobin 12.8 GM/DL (14.0-18.0); Immature Granulocytes % 1.9 %; Immature Granulocytes Absolute 0.43 #; Lymphocytes # 0.9 10*3/uL (1.4-4.0); Lymphocytes % 3.7 % (21.2-54.2); Mean Corpuscular HGB Conc 32.5 GM/DL (32-36); Mean Corpuscular Volume 90.6 FL (87-102); Mean Platelet Volume 10.2 FL (9.6-12.0); Monocytes % 7.6 % (1.7-12.7); Neutrophils % 86.6 % (38.7-73.9); Platelet Count 301 T/CUMM (130-400); Red Blood Count 4.35 MC/CUMM (3.8-5.5); White Blood Count 22.8 T/CUMM (4-12)
[2018-10-08 06:07] LABS: Calcium 8.1 MG/DL (8.5-10.1); Osmolality,Calculated 288.1 MOS/KG (273-304)
[2018-10-08 06:20] LABS: Hypochromasia 1+; Lymphocytes 4 % (20-55); Platelet Estimate Adequate; Segmented Neutrophils 90 % (50-85); Total Cells Counted 100
[2018-10-08] MEDS: ACETYLCYSTEINE 20% 800 MG/4 ML VIAL RESP TX SCH ×3 (07:20→23:28)
[2018-10-08] MEDS: INSULIN REGULAR 100 UNIT/ML SUBCUT SCH ×4 (08:54→20:55)
[2018-10-08] MEDS: ASPIRIN EC 325 MG TABLET PO SCH (08:55)
[2018-10-08] MEDS: FUROSEMIDE 40 MG/4 ML VIAL IV SCH ×2 (08:55→16:54)
[2018-10-08] MEDS: METOPROLOL TARTRATE 25 MG TABLET PO SCH ×2 (08:55→20:56)
[2018-10-08] MEDS: PANTOPRAZOLE 40 MG TABLET PO SCH (08:55)
[2018-10-08] MEDS: CHLORHEXIDINE 0.12% ORAL RINSE 60 ML BOTTLE SWISH/SPIT SCH ×2 (09:00→20:56)
[2018-10-08] MEDS: ATORVASTATIN 40 MG TABLET PO SCH (20:56)
[2018-10-09] MEDS: methylPREDNISolone SOD SUC 40 MG/1 ML VIAL IV SCH ×3 (01:18→17:58)
[2018-10-09] MEDS: ALBUTEROL/IPRATROPIUM 3 ML NEB RESP TX SCH ×5 (03:58→22:59)
[2018-10-09 05:03] LABS: Basophils % 0.2 % (0.0-0.8); Hematocrit 37.6 VOL% (42.0-52.0); Hemoglobin 12.3 GM/DL (14.0-18.0); Immature Granulocytes % 1.6 %; Immature Granulocytes Absolute 0.36 #; Lymphocytes # 0.8 10*3/uL (1.4-4.0); Lymphocytes % 3.6 % (21.2-54.2); Mean Corpuscular HGB Conc 32.7 GM/DL (32-36); Mean Corpuscular Volume 89.7 FL (87-102); Mean Platelet Volume 10.2 FL (9.6-12.0); Monocytes % 6.9 % (1.7-12.7); Neutrophils % 87.7 % (38.7-73.9); Platelet Count 298 T/CUMM (130-400); Red Blood Count 4.19 MC/CUMM (3.8-5.5); Red Cell Distribution Width 14.1 % (9.3-17.3); White Blood Count 22.8 T/CUMM (4-12)
[2018-10-09 05:28] LABS: Osmolality,Calculated 291.8 MOS/KG (273-304)
[2018-10-09 05:39] LABS: Hypochromasia Slight; Lymphocytes 3 % (20-55); Platelet Estimate Normal; Polychromasia Few; Segmented Neutrophils 97 % (50-85); Total Cells Counted 100
[2018-10-09] MEDS: ACETYLCYSTEINE 20% 800 MG/4 ML VIAL RESP TX SCH ×3 (07:48→22:59)
[2018-10-09] MEDS: INSULIN REGULAR 100 UNIT/ML SUBCUT SCH ×4 (09:28→21:26)
[2018-10-09] MEDS: CHLORHEXIDINE 0.12% ORAL RINSE 60 ML BOTTLE SWISH/SPIT SCH ×2 (09:29→21:28)
[2018-10-09] MEDS: PANTOPRAZOLE 40 MG TABLET PO SCH (09:29)
[2018-10-09] MEDS: METOPROLOL TARTRATE 25 MG TABLET PO SCH ×2 (09:29→21:26)
[2018-10-09] MEDS: FUROSEMIDE 40 MG/4 ML VIAL IV SCH ×2 (09:29→16:58)
[2018-10-09] MEDS: ASPIRIN EC 325 MG TABLET PO SCH (09:29)
[2018-10-09] MEDS: ATORVASTATIN 40 MG TABLET PO SCH (21:26)
[2018-10-10] MEDS: ALBUTEROL/IPRATROPIUM 3 ML NEB RESP TX SCH ×3 (03:06→14:50)
[2018-10-10] MEDS: methylPREDNISolone SOD SUC 40 MG/1 ML VIAL IV SCH ×2 (03:20→09:08)
[2018-10-10 04:47] LABS: Basophils # 0.1 10*3/uL (0.0-0.2); Basophils % 0.2 % (0.0-0.8); Hematocrit 37.9 VOL% (42.0-52.0); Hemoglobin 12.5 GM/DL (14.0-18.0); Immature Granulocytes % 1.6 %; Immature Granulocytes Absolute 0.33 #; Lymphocytes # 1.5 10*3/uL (1.4-4.0); Lymphocytes % 7.2 % (21.2-54.2); Mean Corpuscular Volume 89.6 FL (87-102); Mean Platelet Volume 9.8 FL (9.6-12.0); Monocytes % 8.8 % (1.7-12.7); Neutrophils % 82.2 % (38.7-73.9); Platelet Count 282 T/CUMM (130-400); Red Blood Count 4.23 MC/CUMM (3.8-5.5); White Blood Count 20.4 T/CUMM (4-12)
[2018-10-10 04:55] LABS: Calcium 8.1 MG/DL (8.5-10.1)
[2018-10-10 06:14] LABS: Platelet Estimate Normal
[2018-10-10] MEDS: ACETYLCYSTEINE 20% 800 MG/4 ML VIAL RESP TX SCH (08:08)
[2018-10-10] MEDS: FUROSEMIDE 40 MG/4 ML VIAL IV SCH (09:06)
[2018-10-10] MEDS: INSULIN REGULAR 100 UNIT/ML SUBCUT SCH ×2 (09:06→12:20)
[2018-10-10] MEDS: CHLORHEXIDINE 0.12% ORAL RINSE 60 ML BOTTLE SWISH/SPIT SCH (09:07)
[2018-10-10] MEDS: PANTOPRAZOLE 40 MG TABLET PO SCH (09:07)
[2018-10-10] MEDS: ASPIRIN EC 325 MG TABLET PO SCH (09:07)
[2018-10-10] MEDS: METOPROLOL TARTRATE 25 MG TABLET PO SCH (09:07)
[2018-10-10 12:11] VITALS: BP 95/58
== END 2018-10-10 15:28 | disposition home health service (06) | DRG 235 ==
LOC: N.ICU 15:33 → SUPCPDRO 15:33 → N.CVR 09-23 11:58 → N.ICU 09-24 10:16 → N.TELES 09-26 14:51
PROVIDERS: ADMIT Thoracic Surgery (Cardiothoracic Vascular Surgery); ATTEND Thoracic Surgery (Cardiothoracic Vascular Surgery)